=== PATIENT | male | born 1950 | race Caucasian/White ===

== ENCOUNTER 2021-03-20 12:03 | Emergency (ER) | payer MEDICARE, BC ==
--- NOTE | 2021-03-20 13:26 | EDM.PDOC ---
ED HPI GENERAL MEDICAL PROBLEM - General Chief Complaint: Respiratory Problem Stated Complaint: SOB Time Seen by Provider: 03/20/21 13:00 Source of Information: Reports: Patient, Family History Limitations: Reports: No Limitations - History of Present Illness INITIAL COMMENTS - FREE TEXT/NARRATIVE: 70-year-old male, known sleep apnea, recent Covid infection and also ischemic br ainstem stroke in August presents with worsening shortness of breath and daytime somnolence. Denies chest pain. No fevers or chills. He claims he has not felt "well" for a long time, months. This is not a sudden change. He is supposed to be using CPAP but due to persistent reflux he is not using it consistently. Some soreness of the left lateral chest wall from a recent fall, history of some bruising in the area but this was not seen. Onset: Gradual Duration: Chronic (Gradual chronic) Associated Symptoms: Reports: Cough (Some cough), Malaise, Shortness of Breath, Weakness, Other (Chronic persistent lower extremity edema). Denies: Confusion (Confusion), Headaches, Nausea/Vomiting - Related Data Allergies Allergy/AdvReac Type Severity Reaction Status Date / Time No Known Allergies Allergy Verified 03/20/21 12:41 Home Meds: Home Meds Albuterol Sulfate [Albuterol Sulfate Hfa] 2 puff IH ASDIRECTED 03/20/21 [History] Amitriptyline [Elavil] 3 tab PO BEDTIME 03/20/21 [History] Aspirin [Halfprin] 81 mg PO DAILY 03/20/21 [History] Budesonide/Formoterol Fumarate [Symbicort 160-4.5 Mcg Inhaler] 2 puff IH BID 03/20/21 [History] Cetirizine [ZyrTEC] 10 mg PO DAILY 03/20/21 [History] Cholecalciferol (Vitamin D3) [Vitamin D3] 50 mcg PO DAILY 03/20/21 [History] ClonazePAM [KlonoPIN] 0.5 mg PO BEDTIME PRN 03/20/21 [History] Fish Oil/Valley-3 Fatty Acids [Fish Oil 1,000 MG] 1 tab PO DAILY 03/20/21 [History] Gabapentin [Neurontin] 400 mg PO TID 03/20/21 [History] Losartan Potassium [Cozaar] 50 mg PO DAILY 03/20/21 [History] Magnesium Oxide 400 mg PO BEDTIME 03/20/21 [History] Mecobalamin [B12 Active] 2,500 mcg PO DAILY 03/20/21 [History] Montelukast [Singulair] 10 mg PO BEDTIME 03/20/21 [History] Multivitamin 1 tab PO DAILY 03/20/21 [History] Pantoprazole [ProTONIX] 40 mg PO DAILY 03/20/21 [History] Pramipexole [Mirapex] 0.75 mg PO BEDTIME 03/20/21 [History] Rosuvastatin Calcium 20 mg PO BEDTIME 03/20/21 [History] allopurinoL [Zyloprim] 300 mg PO DAILY 03/20/21 [History] metFORMIN HCl [Metformin HCl] 4 tab PO DAILY 03/20/21 [History] Past Medical History HEENT History: Reports: Impaired Vision Cardiovascular History: Reports: Arrhythmia, High Cholesterol, Hypertension Respiratory History: Reports: Sleep Apnea Other Respiratory History: cpap Musculoskeletal History: Reports: Arthritis, Gout Neurological History: Reports: CVA Endocrine/Metabolic History: Reports: Diabetes, Type II, Obesity/BMI 30+ Oncologic (Cancer) History: Reports: Other (See Below) Other Oncologic History: skin Dermatologic History: Reports: Eczema, Psoriasis, Other (See Below) - Infectious Disease History Infectious Disease History: Reports: Chicken Pox, Measles, Mumps, Novel Coronavirus - Past Surgical History Head Surgeries/Procedures: Reports: None HEENT Surgical History: Reports: Adenoidectomy, Cataract Surgery, Tonsillectomy Cardiovascular Surgical History: Reports: None Respiratory Surgical History: Reports: None GI Surgical History: Reports: None Endocrine Surgical History: Reports: None Neurological Surgical History: Reports: C-Spine, Lumbar Spine Musculoskeletal Surgical History: Reports: Hip Replacement, Knee Replacement Oncologic Surgical History: Reports: None Dermatological Surgical History: Reports: Skin Biopsy Social & Family History - Tobacco Use Tobacco Use Status *Q: Never Tobacco User Second Hand Smoke Exposure: No - Caffeine Use Caffeine Use: Reports: Coffee, Soda - Alcohol Use Days Per Week of Alcohol Use: 7 Number of Drinks Per Day: 2 Total Drinks Per Week: 14 - Recreational Drug Use Recreational Drug Use: Yes Recreational Drug Type: Reports: Marijuana/Hashish ED ROS GENERAL - Review of Systems Review Of Systems: See Below Constitutional: Reports: Malaise. Denies: Fever, Chills HEENT: Reports: Other (Recent diagnosis of esophageal candidiasis) Respiratory: Reports: Shortness of Breath, Cough. Denies: Sputum Cardiovascular: Reports: Chest Pain (Only chest pain he complains of is on the left side from a recent fall) GI/Abdominal: Reports: No Symptoms Skin: Denies: Bruising Neurological: Reports: No Symptoms Psychiatric: Reports: No Symptoms ED EXAM, GENERAL - Physical Exam Exam: See Below Exam Limited By: No Limitations General Appearance: Alert, No Apparent Distress Head: Atraumatic Respiratory/Chest: No Respiratory Distress, Lungs Clear Cardiovascular: Regular Rate, Rhythm, No Murmur. No: Extra Beats GI/Abdominal: Soft, Non-Tender, Other (Patient is significantly overweight, obese) Extremities: Pedal Edema, Other (1+ ankle edema bilaterally, symmetric with some venous stasis changes of the skin of both lower extremities) Neurological: Alert, Oriented Psychiatric: Normal Affect, Normal Mood Skin Exam: Warm, Dry Course - Vital Signs Last Recorded V/S: Last Vital Signs Temp 97.6 F 03/20/21 12:54 Pulse 84 03/20/21 12:54 Resp 20 03/20/21 12:54 BP 162/77 H 03/20/21 12:54 Pulse Ox 95 03/20/21 12:54 - Orders/Labs/Meds Orders: Active Orders 24 hr Category Date Time Status BABESIA MICROTI ANTIBODY PANEL Urgent Lab 03/20/21 13:32 Received HUMAN GRANULOCYTIC BARRY-HGE Urgent Lab 03/20/21 13:32 Received LYME, TOTAL AB TEST/REFLEX Urgent Lab 03/20/21 13:32 Received Labs: Laboratory Tests 03/20/21 03/20/21 Range/Units 13:32 13:32 WBC 7.7 (4.5-11.0) K/uL RBC 4.24 L (4.30-5.90) M/uL Hgb 11.2 L (12.0-15.0) g/dL Hct 35.8 L (40.0-54.0) % MCV 84 (80-98) fL MCH 26 L (27-31) pg MCHC 31 L (32-36) % Plt Count 173 (150-400) K/uL Neut % (Auto) 70.6 H (36-66) % Lymph % (Auto) 20.0 L (24-44) % Richardson % (Auto) 9.3 H (2-6) % Eos % (Auto) 0.0 L (2-4) % Baso % (Auto) 0.1 (0-1) % Sodium 138 L (140-148) mmol/L Potassium 4.3 (3.6-5.2) mmol/L Chloride 100 (100-108) mmol/L Carbon Dioxide 26 (21-32) mmol/L Anion Gap 16.3 H (5.0-14.0) mmol/L BUN 26 H (7-18) mg/dL Creatinine 1.2 (0.8-1.3) mg/dL Est Cr Clr Drug Dosing 67.48 mL/min Estimated GFR (MDRD) 60 (>60) Glucose 168 H (74-106) mg/dL Calcium 8.2 L (8.5-10.1) mg/dL Total Bilirubin 0.4 (0.2-1.0) mg/dL AST 21 (15-37) U/L ALT 53 (12-78) U/L Alkaline Phosphatase 138 H (46-116) U/L Troponin I < 0.017 (0.000-0.056) ng/mL Total Protein 6.8 (6.4-8.2) g/dL Albumin 3.7 (3.4-5.0) g/dL Globulin 3.1 (2.3-3.5) g/dL Albumin/Globulin Ratio 1.2 (1.2-2.2) - Re-Assessments/Exams Free Text/Narrative Re-Assessment/Exam: 03/20/21 13:27 Vitals are very reassuring with a normal blood pressure, pulse and PO2 without supplemental oxygen. He still looks somewhat short of breath. CBC, CMP, troponin tick panel and two-view chest x-ray were obtained 03/20/21 14:26 Labs look good, hemoglobin is 11.7, troponin is 0. Chest x-ray was normal, I went back into discussed with this patient and he was sleeping, snoring, and his O2 sats were 85%. Within 45 seconds of waking up he was in the mid 90s. I think his symptoms are mostly from severe sleep apnea and he needs to wear his CPAP. Patient agreed that he will give it a better effort over the next several days. Departure - Departure Time of Disposition: 14:34 Disposition: Home, Self-Care 01 Clinical Impression: Sleep apnea in adult, Hypoxia - Discharge Information Instructions: Sleep Apnea, [id number] Referrals: PCP,None [Primary Care Provider] - Forms: ED Department Discharge Care Plan Goals: It is very important that you wear your CPAP machine while you are sleeping. If you are persistent with this, you should start improving in a few days. Return if worsening such as fever, increased pain or other concerns. Sepsis Event Note (ED) - Evaluation Sepsis Screening Result: No Definite Risk - My Orders Last 24 Hours: My Active Orders 03/20/21 13:32 BABESIA MICROTI ANTIBODY PANEL Urgent HUMAN GRANULOCYTIC BARRY-HGE Urgent LYME, TOTAL AB TEST/REFLEX Urgent - Assessment/Plan Last 24 Hours: My Active Orders 03/20/21 13:32 BABESIA MICROTI ANTIBODY PANEL Urgent HUMAN GRANULOCYTIC BARRY-HGE Urgent LYME, TOTAL AB TEST/REFLEX Urgent
--- NOTE | 2021-03-20 14:03 | CR ---
CHEST: 2 views CLINICAL HISTORY:Dyspnea COMPARISON:None FINDINGS: The heart size, pulmonary vascularity and hilar structures are normal. No infiltrate effusion or pneumothorax is seen. There are a few scattered granulomata. There are atherosclerotic changes in the aorta. IMPRESSION: No acute cardiopulmonary process. Previous granulomatous exposure
[2021-03-23 12:12] LABS: LYME IGG/IGM AB <0.91 ISR (0.00-0.90)
[2021-03-25 16:11] LABS: BABESIA MICROTI IGG <1:10 (Neg:<1:10); BABESIA MICROTI IGM <1:10 (Neg:<1:10); HGE IGG TITER Negative (Neg:<1:64); HGE IGM TITER Negative (Neg:<1:20)
== END 2021-03-20 14:34 | disposition home or self-care (01) ==
LOC: JP.ED 12:03
DX: G47.30 Sleep apnea, unspecified (principal); R09.02 Hypoxemia; E11.9 Type 2 diabetes mellitus without complications; E66.9 Obesity, unspecified; E78.00 Pure hypercholesterolemia, unspecified; I10 Essential (primary) hypertension; Z79.899 Other long term (current) drug therapy; Z86.16 Personal history of COVID-19
CPT/HCPCS: 36415; 71046; 71046-26; 80053; 84484; 85025; 86618; 86666; 86753; 99285-25